=== PATIENT | male | born 1975 | race Caucasian/White ===

== ENCOUNTER → 2019-09-26 10:12 | Outpatient (CLI) | payer OTHER, SELFPAY ==
--- NOTE | 2019-09-26 10:22 | RAD_ITS ---
STUDY: X-RAY - ABDOMEN/PELVIS REASON FOR EXAM: Male, 44 years old. HYDRONEPHROSIS PATIENT STATES HAS A KIDNEY STONE ON THE RIGHT WITH PAIN. HX OF KIDNEY STONES BEFORE. TECHNIQUE: KUB COMPARISON: None. FINDINGS: Normal visualized lung bases. There is an unremarkable bowel gas pattern. There is no demonstrated free abdominal air. The visualized liver, spleen and kidneys are grossly normal in size and morphology. There are small calcifications in the pelvis bilaterally most of which represent phleboliths. Cannot exclude tiny ureteral calculus There are surgical clips within the right upper pelvis. Normal visualized osseous structures. RAD/Abdomen Single View IMPRESSION: Nonspecific abdomen. Cannot exclude distal ureteral calculus. Electronically Signed: Pritesh Washington MD at 16:59 EST , Service support ,
== END ==
PROVIDERS: PCP Family Medicine; Referring Provider Urology; Visit Provider Urology
DX: N13.39 Other hydronephrosis (principal); N39.0 Urinary tract infection, site not specified
CPT/HCPCS: 74018; 87086